=== PATIENT | male | born 1990 | race African-American/Black ===

== ENCOUNTER 2021-12-24 19:48 | Inpatient (IN) ==
[2021-12-24] MEDS ORDERED: LACTATED RINGERS 1,000 ML IV STA (20:02)
[2021-12-24] MEDS ORDERED: KETOROLAC 30 MG/1 ML VIAL IV STA (20:02)
[2021-12-24 20:31] LABS: Basophils % 0.3 % (0.0-0.8); Eosinophils # 0.1 10*3/uL (0.0-0.87); Eosinophils % 0.5 % (0.00-10.9); Hematocrit 41.3 VOL% (42.0-52.0); Hemoglobin 13.5 GM/DL (14.0-18.0); Immature Granulocytes % 3.2 %; Immature Granulocytes Absolute 0.29 #; Lymphocytes # 2.9 10*3/uL (1.4-4.0); Lymphocytes % 32.1 % (21.2-54.2); Mean Corpuscular HGB Conc 32.7 GM/DL (32-36); Mean Corpuscular Volume 87.3 FL (87-102); Mean Platelet Volume 9.2 FL (9.6-12.0); Monocytes # 0.7 10*3/uL (0.11-0.8); Monocytes % 7.8 % (1.7-12.7); Neutrophils % 56.1 % (38.7-73.9); Platelet Count 352 T/CUMM (130-400); Red Blood Count 4.73 MC/CUMM (3.8-5.5); Red Cell Distribution Width 13.1 % (9.3-17.3); White Blood Count 9.1 T/CUMM (4-12)
[2021-12-24] MEDS ORDERED: MORPHINE 2 MG/1 ML SYRINGE IV STA (20:37)
[2021-12-24 20:49] LABS: Alanine Aminotransferase 58 U/L (16-61); Albumin 3.4 G/DL (3.4-5.0); Alkaline Phosphatase 113 U/L (45-117); Aspartate Amino Transferase 55 U/L (0-37); Bilirubin,Total < 0.39 MG/DL (0.20-1.00); Blood Urea Nitrogen 15 MG/DL (7-18); Calcium 8.5 MG/DL (8.5-10.1); Carbon Dioxide 23 MMOL/L (21-32); Chloride 105 MMOL/L (98-107); Estimated Glom Filtration Rate 159 ML/MIN; Glucose 141 MG/DL (74-106); Osmolality,Calculated 275.8 MOS/KG (273-304); Potassium 3.7 MMOL/L (3.5-5.1); Sodium 137 MMOL/L (136-145); Total Protein 7.9 G/DL (6.4-8.2)
[2021-12-24] MEDS ORDERED: ONDANSETRON 4 MG/2 ML VIAL IV PRN (21:00)
[2021-12-24 21:01] LABS: PT Patient Result 10.9 SECS (10.5-12.0); Partial Thromboplastin Time 21.9 SECS (23.8-32.1)
[2021-12-24] MEDS ORDERED: MORPHINE 2 MG/1 ML SYRINGE IV ONE (21:14)
[2021-12-25] MEDS: MORPHINE 2 MG/1 ML SYRINGE IV PRN ×4 (03:54→20:37)
[2021-12-25 04:17] LABS: Basophils % 0.2 % (0.0-0.8); Eosinophils % 0.1 % (0.00-10.9); Hematocrit 38.8 VOL% (42.0-52.0); Hemoglobin 12.7 GM/DL (14.0-18.0); Immature Granulocytes % 0.5 %; Immature Granulocytes Absolute 0.05 #; Lymphocytes # 1.6 10*3/uL (1.4-4.0); Lymphocytes % 14.9 % (21.2-54.2); Mean Corpuscular HGB Conc 32.7 GM/DL (32-36); Mean Corpuscular Volume 86.8 FL (87-102); Mean Platelet Volume 9.1 FL (9.6-12.0); Monocytes # 0.8 10*3/uL (0.11-0.8); Monocytes % 7.2 % (1.7-12.7); Neutrophils % 77.1 % (38.7-73.9); Platelet Count 306 T/CUMM (130-400); Red Blood Count 4.47 MC/CUMM (3.8-5.5); Red Cell Distribution Width 13.3 % (9.3-17.3); White Blood Count 10.6 T/CUMM (4-12)
[2021-12-25 04:39] LABS: Albumin 3.1 G/DL (3.4-5.0); Bilirubin,Total 0.5 MG/DL (0.20-1.00); Calcium 8.8 MG/DL (8.5-10.1); Total Protein 7.2 G/DL (6.4-8.2)
[2021-12-25] MEDS: KETOROLAC 15 MG/1 ML VIAL IV PRN (07:32)
[2021-12-26] MEDS: KETOROLAC 15 MG/1 ML VIAL IV PRN ×2 (00:41→06:10)
[2021-12-26 08:09] VITALS: BP 132/74
== END 2021-12-26 11:16 | disposition home or self-care (01) | DRG 206 ==
LOC: N.ED 19:48 → N.EDINP 21:00 → N.3E 21:16
PROVIDERS: ADMIT Surgery; ATTEND Surgery